=== PATIENT | male | born 1975 ===

== ENCOUNTER 2018-11-09 07:00 | Inpatient (IN) | payer OTHER ==
[~2018-11-09] VITALS: Ht 170.2 cm; Wt 88.9 kg
[2018-12-08] MEDS ORDERED: NKM (14:15)
[2018-12-09] VITALS (17 sets, daily range): BP systolic 99–132; BP diastolic 60–79
[2018-12-09] MEDS ORDERED: ceFAZolin sod 2 GM in D5W 110 ML IVPB ONE (07:00)
[2018-12-09] MEDS ORDERED: IBUPROFEN600 MG ORAL (07:16)
[2018-12-09] MEDS ORDERED: Thrombin 5000 units TOPIC ONE ×2 (07:27→10:51)
[2018-12-09] MEDS ORDERED: Vancomycin 1gm vial IVPB ONE (07:27)
[2018-12-09] MEDS ORDERED: Gelfoam Size TOPIC ONE (07:28)
[2018-12-09] MEDS ORDERED: Bacitracin 50000 Units Vial ONE ×2 (07:28→10:51)
[2018-12-09] MEDS ORDERED: Ropivacaine 5mg/ml Vial 30ml INJ ONE (07:28)
[2018-12-09] MEDS ORDERED: Sterile Water Irrig 1000ml IRRIG ONE (07:30)
[2018-12-09] MEDS ORDERED: Neostigmine 1mg/ml 10ml Inj ONE (07:30)
[2018-12-09] MEDS ORDERED: LR 1000ml ONE (07:30)
[2018-12-09] MEDS ORDERED: Lidocaine 1% MPF 10mg/ml 5ml ONE (07:35)
[2018-12-09] MEDS ORDERED: fentaNYL 100 mcg/2 mL IV ONE (07:41)
[2018-12-09] MEDS ORDERED: Midazolam 2mg/2ml Inj ONE (07:41)
[2018-12-09] MEDS ORDERED: Zemuron 50mg/5ml Inj IV ONE (07:47)
[2018-12-09] MEDS ORDERED: Succinylcholine 20mg/ml 10ml vial ONE (07:48)
[2018-12-09] MEDS ORDERED: Propofol 1,000mg/ 100ml btl IV ONE ×2 (08:00)
--- NOTE | 2018-12-09 08:11 | Pre-Procedure Note/Attestation ---
Pre-Procedure Note/Attestation Complete Prior to Procedure Planned Procedure: not applicable Procedure Narrative: Right L45 and L5S1 microdiscectomy, bilateral baxano hemilaminotomy foraminotomy Indications for Procedure Pre-Operative Diagnosis: Herniation L45 L5S1 Attestation I attest that I discussed the nature of the procedure; its benefits; risks and complications; and alternatives (and the risks and benefits of such alternatives ), prior to the procedure, with the patient (or the patient's legal desk representative). I attest that, if there was a reasonable possibility of needing a blood transfusion, the patient (or the patient's legal desk representative) was given the [place] Department [employer] [facility] standardized written summary, pursuant to the [place] Blood Safety Act ([place] Health and Safety Code # 1645, as amended). I attest that I re-evaluated the patient just prior to the surgery and that there has been no change in the patient's H&P, except as documented below: Jaswinder Fowler MD December 09, 2018 08:10
--- NOTE | 2018-12-09 08:11 | Brief Operative Note ---
Immediate Post Operative Note Operative Note Chief Complaint: back and leg pain Pre-op Diagnosis: Herniation L45 L5S1 Procedure: Right L45 and L5S1 microdiscectomy, bilateral baxano hemilaminotomy foraminotomy of L45 and L5 hemilamicectomy wtih L5S1 bilateral baxano foraminotomy Post-op Diagnosis: same as pre-op Findings: consistent w/pre-op dx studies Surgeon: Janeth Recruitment Specialist: [place] Anesthesiologist: LEROY Anesthesia: general Specimen: none Complications: none Condition: stable Fluids: IVF Estimated Blood Loss: minimal Drains: none Implant(s) used?: Yes - Baxano Size 10 and 7.5, not implanted Jaswinder Fowler MD December 09, 2018 08:11
[2018-12-09] MEDS ORDERED: Chloraseptic Spray 20mL Bottle ORAL PRN (08:15)
[2018-12-09] MEDS ORDERED: Milk of Magnesia 30ml Ud ORAL PRN (08:15)
[2018-12-09] MEDS ORDERED: Naloxone 0.4mg/ml Inj IVP PRN (08:15)
[2018-12-09] MEDS ORDERED: Morphine Sulfate 4mg/ml Inj (IV USE ONLY) IV PRN ×2 (08:15)
[2018-12-09] MEDS ORDERED: HYDROcodone/Acetamin 7.5/325 tab ORAL PRN ×2 (08:15)
[2018-12-09] MEDS ORDERED: Metoclopramide 10mg/2ml Inj IVP PRN ×2 (08:15→09:15)
[2018-12-09] MEDS ORDERED: HYDROmorphone 1mg/ml Carpuject IVP PRN (08:15)
[2018-12-09] MEDS ORDERED: HYDROcodone/Acetamin 5/325 tab ORAL PRN (08:15)
[2018-12-09] MEDS ORDERED: NS Irrig 1000ml IRRIG ONE (08:21)
[2018-12-09] MEDS ORDERED: Ketorolac 30mg Inj ONE (08:50)
[2018-12-09] MEDS ORDERED: Glycopyrrolate 0.2mg/ml 1ml Vial ONE (08:50)
[2018-12-09] MEDS ORDERED: Morphine Sulfate 10mg/ml Inj ONE (08:52)
[2018-12-09] MEDS ORDERED: Sodium Chloride 10ml vial INJ ONE (08:52)
[2018-12-09] MEDS ORDERED: LR 1000ml 1,000 ML IVLG SCH (09:02)
--- NOTE | 2018-12-09 09:02 | Anethesia Preoperative Eval ---
Anesthesia Pre-op PMH/ROS General Date of Evaluation: December 09, 2018 Time of Evaluation: 07:40 Anesthesiologist: Phu ASA Score: ASA 2 Mallampati Score Class I : Soft palate, uvula, fauces, pillars visible Class II: Soft palate, uvula, fauces visible Class III: Soft palate, base of uvula visible Class IV: Only hard plate visible Mallampati Classification: Class II Surgeon: Janeth Diagnosis: L4 to S1 laminotomy with decompression Surgical Procedure: Lumbar laminotomy Anesthesia History: none Family History: no anesthesia problems Allergies: Coded Allergies: TRAMADOL (Verified Adverse Reaction, Severe, DEPRESSION , 12/09/18) Medications: see eMAR Patient NPO?: Yes NPO Date: December 08, 2018 NPO Time: 2029 Past Medical History Cardiovascular: Denies: HTN, CAD, [place], valve dz, arrhythmia, other Pulmonary: Denies: asthma, COPD, [place], other Gastrointestinal/Genitourinary: Reports: GERD - mild; Denies: CRI, ESRD, other Neurologic/Psychiatric: Reports: other; Denies: dementia, CVA, depression/anxiety, TIA Endocrine: Denies: DM, hypothyroidism, steroids, other HEENT: Denies: cataract (L), cataract (R), glaucoma, [place] (L), [place] (R), other Hematology/Immune: Denies: anemia, DVT, bleeding disorder, other Musculoskeletal/Integumentary: Denies: OA, RA, DJD, DDD, edema, other PMH Narrative: as above PSxH Narrative: vasectomy Anesthesia Pre-op Phys. Exam Physician Exam Last Vital Signs Date Time Temp Pulse Resp B/P (MAP) Pulse Ox O2 Delivery O2 Flow Rate FiO2 12/09/18 07:10 Room Air 12/09/18 06:57 97.4 56 18 115/73 (87) 98 Constitutional: NAD Neurologic: CN 2-12 intact Cardiovascular: RRR, no M/R/G Respiratory: CTA Gastrointestinal: S/NT/ND Airway Exam Mallampati Score: Class II MO: full Neck: flexible ROM: full Teeth: intact Dentures: no upper, no lower Anesthesia Pre-op A/P Labs see chart Studies Pre-op Studies: EKG - NSR Risk Assessment & Plan Assessment: ASA 2 Plan: GA with ETT prone position neuromonitoring Status Change Before Surgery: No Pre-Antibiotics Drug: Ancef 2gr Given Within 1 Hr of Incision: Yes Time Given: 08:34 Dheeraj Bay MD December 09, 2018 09:02
[2018-12-09] MEDS ORDERED: Acetaminophen (Non formulary) 100 ML IV ONE (09:15)
[2018-12-09] MEDS ORDERED: Meperidine 50mg/ml Inj(FOR RIGORS ONLY) IV PRN (09:15)
[2018-12-09] MEDS ORDERED: DiphenhydrAMINE 50mg/ml Inj IVP PRN (09:15)
[2018-12-09] MEDS ORDERED: Ketorolac 30mg Inj IV PRN (09:15)
--- NOTE | 2018-12-09 12:00 | Immediate Post-Op Evaluation ---
Immediate Post-Op Evalulation Immediate Post-Op Evalulation Procedure: L4 to S1 laminotomy with decompression and Baxano foraminotomy Date of Evaluation: December 09, 2018 Time of Evaluation: 11:59 IV Fluids: 1200 Blood Products: none Estimated Blood Loss: 100 Urinary Output: 300 Blood Pressure Systolic: 116 Blood Pressure Diastolic: 59 Pulse Rate: 82 Respiratory Rate: 20 O2 Sat by Pulse Oximetry: 99 Temperature (Fahrenheit): 98.4 Pain Score (1-10): 1 Nausea: No Vomiting: No Complications none Patient Status: reacts, patent, extubated, none Hydration Status: adequate Dheeraj Bay MD December 09, 2018 12:00
[2018-12-09] MEDS: Hydromorphone 0.5mg/0.5ml inj IVP PRN ×2 (12:16→12:24)
--- NOTE | 2018-12-09 13:40 | NUR ---
NURSE NOTES: Received report from Anthony charge nurse. Patient a/o x 4 lying on the bed. No respiratory discomfort noted. Denies any pain at this time. Posterior back surgical site dressing is dry and intact. LR fluid is running. Unit orientation was given. Bed in lowest position, call light within reach. Will continue to monitor.
--- NOTE | 2018-12-09 14:59 | NUR ---
CASE MANAGEMENT:REVIEW 43 YR OLD MALE HERE FOR ELECTIVE SURGERY SI: BACK AND LEG PAIN HERNIATION L45 L5 S1 IS: TO SURGERY FOR: MICRODISCECTOMY, BILATERAL BAXANO HEMILAMINOTOMY : TO MED/SURG 3 [facility]
--- NOTE | 2018-12-09 15:01 | Diagnostic Imaging Report ---
Indication: Intraoperative imaging Comparison: None Findings: 6 7 fluoroscopic views of the lower lumbar spine were obtained. Foraminotomies performed at L5-S1 and at L4-5. IMPRESSION: Intraoperative imaging
[2018-12-09] MEDS: NS w/KCl 20mEq 1000ml 1,000 ML IV SCH (16:06)
--- NOTE | 2018-12-09 17:19 | 48 Hour Post Anesthesia Eval ---
Post Anesthesia Evaluation Procedure: L4 to S1 laminotomy with decompression and Baxano foraminotomy Date of Evaluation: December 09, 2018 Time of Evaluation: 17:17 Blood Pressure Systolic: 118 0: 72 Pulse Rate: 76 Respiratory Rate: 20 Temperature (Fahrenheit): 97.6 O2 Sat by Pulse Oximetry: 98 Airway: patent Nausea: No Vomiting: No Pain Intensity: 3 Hydration Status: adequate Cardiopulmonary Status: stable Mental Status/LOC: patient returned to baseline Follow-up Care/Observations: n/a Post-Anesthesia Complications: none Follow-up care needed: ready to discharge Dheeraj Bay MD December 09, 2018 17:19
[2018-12-09] MEDS: Docusate 100mg cap ORAL SCH (18:31)
[2018-12-09] MEDS: Dexamethasone 4mg/ml vial IVP SCH ×2 (18:32→23:44)
--- NOTE | 2018-12-09 19:15 | Operative Note - Dictated ---
DATE OF OPERATION: 12/09/2018 SURGEON: Jaswinder Fowler MD, Orthopaedic Spine Surgeon. SHANK TURNER SURGEON: Suraj Chowdhury M.D. ANESTHESIOLOGIST: ANESTHESIA: General endotracheal anesthesia. PREOPERATIVE DIAGNOSES: 1. Intractable back pain. 2. Intractable leg pain. 3. Worsening radiculopathy. 4. Weakness. 5. Herniated nucleus pulposus, L4-L5 and L5-S1 herniation. 6. Neural foraminal stenosis, L4-L5 and L5-S1. POSTOPERATIVE DIAGNOSES: 1. Intractable back pain. 2. Intractable leg pain. 3. Worsening radiculopathy. 4. Weakness. 5. Herniated nucleus pulposus, L4-L5 and L5-S1 herniation. 6. Neural foraminal stenosis, L4-L5 and L5-S1. PROCEDURES PERFORMED: 1. Right-sided L4-L5 and L5-S1 microdiscectomy. 2. L4-L5 and L5-S1 hemilaminotomy, foraminotomy and medial facetectomy. L5 hemilamicectomy 3. L4-L5 and L5-S1 neural foraminotomy through a transpedicular intraforaminal approach. 4. Use of intraoperative microscope. 5. Supervision and interpretation of intraoperative fluoroscopy. 6. Supervision and interpretation of somatosensory-evoked potential and free running EMG monitoring. EBL: Less than 100 mL. COMPLICATIONS: None. INDICATIONS FOR THE PROCEDURE: Neo presents for intractable back pain and radiculopathy. The patient tried and failed a prolonged course of conservative management, including but not limited to chiropractic therapy, physical therapy, nonsteroidal anti-inflammatory drugs, medication, ice packs as well as epidural injection. Despite these therapies, the patient still developed recalcitrant pain and elected for definitive management in the form of right-sided L4-L5 and L5-S1 microdiscectomy, L4-L5 and L5-S1 hemilaminotomy, foraminotomy and medial facetectomy, L4-L5 and L5-S1 neural foraminotomy through a transpedicular intraforaminal approach We had a long discussion with him regarding definitive surgical treatment options. The patient's MRI demonstrated herniated nucleus pulposus, L4-L5 and L5-S1 herniation and neural foraminal stenosis, L4-L5 and L5-S1 and as a result, I felt he would benefit from the discectomy as well as neural foraminotomy at this level. We had a long discussion with the patient regarding the risks, alternatives, and benefits of surgery. Our description of the risks included a discussion in person as well as a signed consent which detailed all pertinent risks and the procedure itself. Briefly, our discussion included but was not limited to infection, bleeding, pseudarthrosis, spinal cord injury, neurovascular injury, dural tear, CSF leak, neuropathy, paralysis, permanent weakness/drop foot, paresthesias blindness, palsy and weakness. The patient understood there may be a need for revision surgery or additional procedures. Approach related complications including dysphonia, dysphagia, blindness, permanent vocal cord and neural injury, hematoma, swallowing and breathing difficulty. Medical complications including liver, kidney, shock, and cardiopulmonary failure. Anesthesia complications including , swelling. Damage to the musculature, larynx (voice injury or loss),esophagus (throat), trachea, blood vessels and muscles (muscular sprain) and lungs (pneumothorax) during this surgical procedure. Injury to deeper structures may be temporary or permanent. The patient understood these and elected to proceed. A written and verbal consent was given. We discussed the pros and cons of all the alternatives. We discussed the uncertainties associated with the decision. Afterwards I assessed the patients understanding and explored their preferences. All questions were answered and no guarantees were given. Medical clearance was obtained prior to surgery. OPERATIVE FINDINGS: A broad-based disc herniation at L4-L5 and L5-S1, which encroached on the thecal sac and neural foraminal elements therein. This disc was acute in nature and not calcified. It was mobile and free floating and resected easily. There was also neural foraminal stenosis at L4-L5 and L5-S1. At L4-L5, there was a very large disc herniation, which was observed through a tear in the posterior longitudinal ligament. This tear was 25 degrees approximately cephalad to caudad and through this tear, we noticed a migration of nucleus pulposus fragments, which were soft, not calcified, mobile, and freely floating with impingement and closure on the neural foramina and exiting with traversing nerve roots at L4-L5. At L5-S1, we noticed a larger in terms of the base disc herniation through a tear in the PLL approximately 30 degrees cephalad to caudad with migration of the nucleus pulposus tissue causing encroachment on the exiting neural foramina at L5-S1. This disc was mobile, freely floating, and not calcified more inline with the traumatic process and the traumatic tear seen along the edge of the PLL. DESCRIPTION OF PROCEDURE: Under the benefit of general endotracheal anesthesia and with the assistance of the entire operative team, the patient was moved from the gurney onto the operative table in the prone position on a Mauricio frame. The head was secured and positioned appropriately. Bilateral arms were secured with Gel pads and foam and all bony prominences were padded. The bilateral lower extremity SCD and AMPARO hose were placed for DVT prophylaxis. A surgical timeout was called which corroborated our planned procedure. Preoperative Antibiotics were administered within 30 minutes of the incision for prophylaxis. Decadron was given for preoperative steroids. Using lateral radiography, the operative levels were delineated. An incision was marked based on our interpretation of lateral radiography and afterwards the body was prepped and draped in the usual sterile manner. The family was notified that we were ready to commence surgery and were called in the waiting room hourly for updates. An incision was based on our lateral fluoroscopic image to center the incision at the L5-S1 interspace. The wound was prepped and draped in the usual sterile fashion. Using a scalpel a midline incision was taken down through the skin and subcutaneous tissues until the overlying hemilamina of L4-L5 and L5-S1 were visualized. Next, using meticulous hemostasis, hemilamotomies were dissected and retractors were placed. Using a Sergey dental we confirmed placement at the L4-L5 and L5-S1 interspace. We next turned our attention to our decompression. A standard hemilaminotomy foraminotomy medial facetectomy was performed at each level in standard fashion using a Midas-Florian type AM8 drill bit, straight and angled curettage, and Kerrison 4 rongeurs until the lateral thecal sac margin and traversing nerve root was visualized. All remainders of the ligamentum flavum and lateral bony margins were resected in total with angled curettage and Kerrison 4 rongeurs until the lateral thecal sac margin and traversing nerve root was visualized and decompressed. We next turned our attention toward our L4-L5 and L5-S1 microdiscectomy on the right side. A Hickman 4 was used to gently mobilize the thecal sac medially and this was held retracted with a bayonetted nerve root retractor. It was at this point that we noted a large broad-based disc protrusion with encroachment dorsally on the thecal sac neural foraminal contents. A bayonet and nerve root retractor was then placed carefully to retract the thecal sac and a discectomy was performed using a combination of a long handled 15 blade scalpel, downgoing and straight pituitaries and downgoing curettage. Afterward the disc space was irrigated twice with 20 mL of antibiotic-impregnated saline. All loose and free-floating disc fragments were carefully resected with a narrow pituitary. Having been satisfied with our decompression after our discectomy of all neural elements we next turned our attention to our neural foraminoplasty/foraminotomy. This was performed through a transpedicular intraforaminal approach using an access probe followed by a neuro check device, which confirmed ventral placement of our nerve root. Once we confirmed we were safe we next turned our attention towards placement of our size 10, 7.5 file under direct microscopic visualization and under lateral fluoroscopy. Using pre and post reciprocation imaging we were able to visualize our direct decompression given the reciprocation allowed for re-creation of the neural foraminal arch at L4-L5 and L5-S1. Afterwards hemostasis was obtained with 60 mL of antibiotic-impregnated saline followed by FloSeal and Gelfoam. Prior to final closure I noticed a possible dural tear near the inferior leading edge of the L5 Lamina and in order to investigate this a right hemilaminectomy was performed of L5. Once complete visualization was possible there was no evidence of a tear whatsoever and the entire thecal sac was visualized along the right side. After sponge and needle count were found to be correct, next we turned our attention to closure. Closure consisted of 1-0 Vicryl in standard interrupted fashion. Zosyn was placed deep to the fascia and superficial to the fascia for Antibiotic prophylaxis. Skin closure was performed with 2-0 Vicryl in interrupted fashion followed by a running Monocryl for the skin. Final dressings consisted of Dermabond for the superficial skin, Telfa and Tegaderm. The patient tolerated the procedure well. The patient was extubated after the conclusion of surgery without incident. We discussed the findings of the surgery with the family upon completion of the case. At this point the patient will be transferred to the spine floor for further observation. Jaswinder Fowler M.D. DR: KURT JOB#: [id number] CC: GLENDY
--- NOTE | 2018-12-09 19:30 | NUR ---
NURSE NOTES: Received report from GALDINO Mariee and rounds done. Received pt lying in bed, AOX4, denies pain at this time, no distress noted. Surgical dressing C/D/I. IV L hand #18 patent and intact. IV fluid infusing as ordered. Bed in lowest position and locked, side rails up x 2, call light within reach. at bedside. Will continue to monitor.
--- NOTE | 2018-12-09 19:58 | NUR ---
HAND-OFF: Report given to Nasim Valencia RN.
[2018-12-09] MEDS: ceFAZolin sod 1 GM in D5W 55 ML IV SCH (20:07)
--- NOTE | 2018-12-09 20:15 | NUR ---
NURSE NOTES: Pt unable to void after 7 hours s/p microdiscectomy. Bladder scan done showed 314ml urine retention. Will notify Dr. Padilla.
--- NOTE | 2018-12-09 20:20 | NUR ---
NURSE NOTES: Dr. Valerie gonzalez inserted wilhelm catheter.
--- NOTE | 2018-12-09 20:38 | NUR ---
NURSE NOTES: Pt voided per urinal 100cc yellow color urine. Will continue to monitor.
[2018-12-09] MEDS: Morphine Sulfate 2mg/ml Inj(IV/IM USE ONLY) IV PRN (23:43)
[2018-12-10] VITALS: BP 104/58
[2018-12-10] MEDS: NS w/KCl 20mEq 1000ml 1,000 ML IV SCH (01:13)
[2018-12-10 04:00] VITALS: BP 100/57
[2018-12-10] MEDS: ceFAZolin sod 1 GM in D5W 55 ML IV SCH ×2 (04:10→11:33)
--- NOTE | 2018-12-10 04:18 | NUR ---
NURSE NOTES: Regis from microbiology called, pt is positive VRE rectum. Figueroa nursing diesel powerplant supervisor notified
[2018-12-10] MEDS: Dexamethasone 4mg/ml vial IVP SCH ×2 (05:38→11:33)
--- NOTE | 2018-12-10 07:22 | NUR ---
NURSE NOTES:BEDSIDE ROUNDS DONE WITH NIGHT RN(MATHEW),PATIENT LYING ON HIS LEFT SIDE,ROOM AIR,BACK DRSNG C/D/I.CLAIMS PAIN IS CONTROLLED WITH PAIN MED FOR NOW.IV SITE PATENT.WILL CONTINUE CURRENT PLAN OF CARE.
--- NOTE | 2018-12-10 07:22 | NUR ---
HAND-OFF: Report given to GALDINO Griffith. Pt in stable condition.
--- NOTE | 2018-12-10 07:59 | General Progress Note ---
Assessment/Plan Assessment/Plan: Herniation L45 L5S1 Right L45 and L5S1 microdiscectomy, bilateral baxano hemilaminotomy foraminotomy urinary retention PLAN 1. incentive spirometry 2. monitor for urinary retention 3. PT evaluation and therapy 4. Hydration 5. Pain management 6. discharge once stable with outpatient follow up Subjective Allergies: Coded Allergies: TRAMADOL (Verified Adverse Reaction, Severe, DEPRESSION , 12/09/18) Subjective asked to follow Objective Last 24 Hour Vital Signs Date Time Temp Pulse Resp B/P (MAP) Pulse Ox O2 Delivery O2 Flow Rate FiO2 12/10/18 07:32 98 Nasal Cannula 3.0 32 12/10/18 07:32 Nasal Cannula 3.0 32 12/10/18 07:18 Room Air 12/10/18 04:00 97.8 60 20 100/57 (71) 97 12/10/18 00:00 98.4 67 20 104/58 (73) 98 12/09/18 21:00 Room Air 12/09/18 20:00 98.6 60 18 108/73 (85) 98 12/09/18 17:19 76 20 98 12/09/18 17:00 97.7 63 20 109/74 (86) 98 12/09/18 16:00 98.3 64 20 103/60 (74) 97 12/09/18 15:10 98.3 65 18 100/60 (73) 98 12/09/18 14:40 98.3 63 20 99/60 (73) 97 12/09/18 14:10 98.3 64 20 100/60 (73) 97 12/09/18 13:40 98.8 75 20 100/66 (77) 96 12/09/18 13:30 98.3 68 17 118/66 99 Nasal Cannula 3.0 12/09/18 13:15 62 18 114/63 98 Nasal Cannula 3.0 12/09/18 13:00 65 17 118/67 97 Nasal Cannula 3.0 12/09/18 12:46 98.3 12/09/18 12:46 98.3 12/09/18 12:45 70 19 115/71 98 Nasal Cannula 3.0 12/09/18 12:30 74 20 132/79 99 Simple Mask 6.0 12/09/18 12:17 73 19 131/76 98 Simple Mask 6.0 12/09/18 12:07 74 18 116/63 100 Simple Mask 6.0 12/09/18 12:02 77 19 117/62 100 Simple Mask 6.0 12/09/18 12:00 82 20 99 12/09/18 11:57 98.3 80 20 110/62 99 Simple Mask 6.0 12/09/18 11:30 98.3 12/09/18 09:56 99 Nasal Cannula 3.0 32 12/09/18 09:56 Nasal Cannula 3.0 32 Intake and Output 12/09/18 12/10/18 19:00 07:00 Intake Total 1350 ml 1410 ml Output Total 400 ml 950 ml Balance 950 ml 460 ml Intake Oral 150 ml 100 ml IV Total 1200 ml 1310 ml Output Urine Total 300 ml 950 ml Estimated Blood Loss 100 ml Height (Feet): 5 Height (Inches): 7.00 Weight (Pounds): 196 Objective WDWN NAD clear breath sounds bilaterally without rhonchi or wheeze [id number] without MRG NABS nontender no HSM no CCE nonfocal Merlin Padilla MD December 10, 2018 07:59
[2018-12-10 08:00] VITALS: BP 108/49
[2018-12-10] MEDS: Docusate 100mg cap ORAL SCH (09:47)
[2018-12-10] MEDS: Morphine Sulfate 2mg/ml Inj(IV/IM USE ONLY) IV PRN (09:48)
--- NOTE | 2018-12-10 09:48 | NUR ---
NURSE NOTES:MEDICATED WITH MORPHINE 2MG IV PRIOR TO PHYSICAL THERAPY ACTIVITY.PAIN LEVEL 3/10
--- NOTE | 2018-12-10 10:15 | NUR ---
NURSE NOTES:PATIENT IN GOOD SPIRIT AMBULATING IN HALLWAY WITH PT USING FRONT WHEEL WALKER.
[2018-12-10 12:00] VITALS: BP 93/65
[2018-12-10] MEDS ORDERED: NORCO 10-325 T1 EACH ORAL (12:22)
[2018-12-10] MEDS ORDERED: SOMA350 MG PO (12:23)
--- NOTE | 2018-12-10 12:30 | NUR ---
NURSE NOTES:SEEN BY ,D/C ORDERS CARRIED OUT.
--- NOTE | 2018-12-10 13:30 | NUR ---
NURSE NOTES:D/C INSTRUCTIONS INCLUDING BELONGINGS,RX,EDUCATION ABOUT CHANGING SURGICAL DRESSING PROVIDED AND VERBALIZED UNDERSTANDING.IV D/CD.BACK DRESSING CLEAN/DRY/INTACT.NO C/O PAIN. AT BEDSIDE.D/C BY PRIVATE VEHICLE.
--- NOTE | 2018-12-10 14:00 | NUR ---
PT Note PT rhoda completed, tx initiated. Patient was able to ambulate with a FWW. Movements are slow and guarded. He c/o dizziness all throughout gait training. Patient can benefit from PT services to instruct on proper log rolling and proper body mechanics to improve his safety in mobility and gait. Addendum: 12/10/18 at 1401 by AYDEN NICHOLAS PT Amended: Links added.
--- NOTE | 2018-12-10 14:30 | NUR ---
NURSE NOTES:brought down to lobby by casi king.by wheelchair,accompanied by .stable on d/c
--- NOTE | 2018-12-12 12:05 | Discharge Summary ---
Discharge Summary Hospital Course Date of Admission December 09, 2018 at 06:26 Date of Discharge December 10, 2018 at 14:30 Admitting Diagnosis Herniated nucleus pulposus, intractable pain, radiculopathy Reason for Hospitalization: Elective surgery HPI Neo Dash is a 43 year old male who was admitted on December 09, 2018 at 06:26 for herniated nucleus pulposus, intractable pain, radiculopathy Patient presented with intractable back pain and radiculopathy. The patient tried and failed a prolonged course of conservative management, including but not limited to chiropractic therapy, physical therapy, nonsteroidal anti-inflammatory medication, ice packs as well as epidural injection. Despite these therapies, the patient still developed recalcitrant pain and elected for definitive management in the form of right-sided L4-L5 and L5-S1 microdiscectomy, L4-L5 and L5-S1 hemilaminotomy, foraminotomy and medial facetectomy, L4-L5 and L5-S1 neural foraminotomy through a transpedicular intraforaminal approach. Consultations Dr Padilla -IM Procedures s/p 12/09/[address] Fowler 1. Right-sided L4-L5 and L5-S1 microdiscectomy. 2. L4-L5 and L5-S1 hemilaminotomy, foraminotomy and medial facetectomy. L5 hemilaminectomy 3. L4-L5 and L5-S1 neural foraminotomy through a transpedicular intraforaminal approach. 4. Use of intraoperative microscope. 5. Supervision and interpretation of intraoperative fluoroscopy. 6. Supervision and interpretation of somatosensory-evoked potential and free running EMG monitoring. Hospital Course status post surgery course of recovery uneventful initially IV fluids s/p perioperative antibiotics neurovascular status closely monitored, stable incision clean , dry , and intact pain management addressed , and pain was controlled hemodynamically stable ambulated with PT with FWW fall precautions maintained safe for ambulation DVT prophylaxis provided use of incentive spirometry was encouraged while in the bed tolerated diet , IV fluids discontinued GI prophylaxis provided antiemetics were on board as needed patient had difficulties with voiding after Carson catheter was discontinued patient was unable to void 7 hours after removal of Carson catheter bladder scan revealed 314 mL of urine internal medicine doctor advised to insert Carson at that time patient was able to void 100 mL of urine since that time had no further difficulties with voiding ,voided freely bowel regimen instituted patient was stable for discharge discharge instructions provided follow up with surgeon as outpatient FINAL DIAGNOSES 1. Intractable back pain. 2. Intractable leg pain. 3. Worsening radiculopathy. 4. Weakness. 5. Herniated nucleus pulposus, L4-L5 and L5-S1 herniation. 6. Neural foraminal stenosis, L4-L5 and L5-S1. 7. s/p Right-sided L4-L5 and L5-S1 microdiscectomy. L4-L5 and L5-S1 hemilaminotomy, foraminotomy and medial facetectomy. L5 hemilaminectomy L4-L5 and L5-S1 neural foraminotomy through a transpedicular intraforaminal approach. 8. urinary retention Discharge Medications Continued Medications: Carisoprodol* (Soma*) 350 Mg Tablet 350 MG PO BID, TAB (This prescription has been renewed) Hydrocodone Bit/Acetaminophen 10-325* (Tulia 10-325*) 1 Each Tablet 1 TAB ORAL Q8HR PRN for For Pain, #12 TAB 0 Refills (This prescription has been renewed) PRN PAIN Ibuprofen* (Motrin*) 600 Mg Tablet 800 MG ORAL Q6H PRN for For Pain, #30 TAB 0 Refills (This prescription has been renewed) Discharge Condition Upon Discharge: stable Discharge Disposition Patient was discharged to Home (01) Discharge Instructions Discharge Instructions Special Instructions I have been assigned to complete a D/C Summary on this account. I was not involved in the patient management Shanti Valdez NP December 12, 2018 12:05
--- NOTE | 2018-12-14 11:30 | Discharge Summary ---
DATE OF ADMISSION: 12/09/2018 DATE OF DISCHARGE: 12/10/2018 PROCEDURE PERFORMED DURING ADMISSION: Microdiscectomy, hemilaminotomy, foraminotomy at L4-L5 and L5-S1. REASON FOR ADMISSION: Herniation of L4-L5 and L5-S1. HOSPITAL COURSE/TREATMENT RENDERED: DISCHARGE PHYSICAL EXAMINATION: 1. The patient was ambulating with and without the assistance of physical therapy. 2. Prior to discharge home incision was clean and dry with minimal swelling. 3. Follows commands. 4. Alert and oriented. 5. Carson discontinued, voiding. 6. Incentive spirometer at bedside. 7. IVF hep locked. MOTOR: Demonstrates expected postoperative bulk and tone. Moves biceps, triceps, and deltoid musculature on command. Moves hip flexors, quadriceps, tibialis anterior, EHL, gastrocsoleus musculature on command as well. TREATMENT RENDERED: 1. Daily nursing care. 2. Physical Therapy. 3. Occupational Therapy. 4. Intravenous medications. 5. Oral medications. 6. Daily postoperative examinations by Spine surgery team. CONDITION OF PATIENT ON DISCHARGE: The condition on discharge is stable for discharge to home. DISCHARGE INSTRUCTIONS: Our specific instructions relating to physical activity, medications, diet, and followup care are detailed in our standard operative folder and were given to this patient prior to surgery. We will however summarize these briefly as stated below. Regarding physical activity, we would like the patient to limit their flexion, extension, and rotation. We also require a limitation on their bending, lifting, and twisting. All medication has been called in prior to surgery to their pharmacy of choice. They can resume their regular diet once tolerated. We would like them to shower and limit soaking the wound in a tub/Jacuzzi/the ocean for a period of one month or until the incision is completely healed. We will have them follow up in our office in three weeks' time for their regularly scheduled appointment. They understand to call our office tomorrow to schedule the time for their three week followup appointment. The patient will notify us should they experience any increase in the severity of pain, redness/swelling/ or drainage from their incision. Jaswinder Fowler M.D. DR: MADELEINE JOB#: [id number] CC:
== END 2018-12-10 14:30 | disposition home or self-care (01) | DRG 520 ==
LOC: SDSOVERFLO 12-09 06:26 → 3E 12-09 13:40
PROC: 0SB20ZZ Excision of Lumbar Vertebral Disc, Open Approach (ICD-10-PCS; principal; 2018-12-09 08:00)
PROC: 0SB40ZZ Excision of Lumbosacral Disc, Open Approach (ICD-10-PCS; principal; 2018-12-09 08:00)
PROC: 01NB0ZZ Release Lumbar Nerve, Open Approach (ICD-10-PCS; principal; 2018-12-09 08:00)
DX: M51.16 Intervertebral disc disorders with radiculopathy, lumbar region (principal); M51.17 Intervertebral disc disorders with radiculopathy, lumbosacral region; M48.061 Spinal stenosis, lumbar region without neurogenic claudication; M48.07 Spinal stenosis, lumbosacral region; R33.8 Other retention of urine; V89.2XXS Person injured in unspecified motor-vehicle accident, traffic, sequela
CPT/HCPCS: 36415; 72020; 76000; 86850; 86900; 86901; 87081; 94003; 94150; 94760; J2250; J2405; J2710